=== PATIENT | female | born 1975 | race Caucasian/White ===

== ENCOUNTER → 2017-11-06 | Outpatient (CLI) | payer OTHER ==
[2017-11-06 09:25] LABS: ADD MAN DIFF? NO
[2017-11-06 09:29] LABS: BASO # 0.1 x10^3/uL (0.0-0.2); BASO % 1 % (0-3); EOS # 0.3 x10^3/uL (0.0-0.7); EOS % 2 % (0-3); HEMATOCRIT 42.7 % (36.0-47.0); HEMOGLOBIN 14.1 g/dL (12.0-15.5); LYMPH # 3.9 x10^3/uL (1.0-4.8); LYMPH % 24 % (24-48); MEAN CORPUSCULAR HEMOGLOBIN 31 pg (25-35); MEAN CORPUSCULAR HGB CONC 33 g/dL (31-37); MEAN CORPUSCULAR VOLUME 94 fL (79-100); MONO # 1.5 x10^3/uL (0.0-1.1); MONO % 9 % (0-9); NEUT # 10.9 x10^3uL (1.8-7.7); NEUT % 65 % (31-73); PLATELET COUNT 314 x10^3/uL (140-400); RED BLOOD COUNT 4.54 x10^6/uL (3.50-5.40); RED CELL DISTRIBUTION WIDTH 13.3 % (11.5-14.5); WHITE BLOOD COUNT 16.6 x10^3/uL (4.0-11.0)
[2017-11-06 09:49] LABS: ALBUMIN 3.8 g/dL (3.4-5.0); ALBUMIN/GLOBULIN RATIO 0.8 (1.0-1.7); ALK PHOS 56 U/L (46-116); ALT (SGPT) 34 U/L (14-59); ANION GAP 12 (6-14); AST (SGOT) 25 U/L (15-37); BLOOD UREA NITROGEN 15 mg/dL (7-20); BUN/CREATININE RATIO 19 (6-20); CALCIUM 8.6 mg/dL (8.5-10.1); CARBON DIOXIDE 25 mmol/L (21-32); CHLORIDE 103 mmol/L (98-107); CREATININE 0.8 mg/dL (0.6-1.0); GFR 79.4; GLUCOSE 78 mg/dL (70-99); SODIUM 140 mmol/L (136-145); TOTAL BILIRUBIN 0.2 mg/dL (0.2-1.0); TOTAL PROTEIN 8.3 g/dL (6.4-8.2)
[2017-11-06 09:57] LABS: POTASSIUM 4.6 mmol/L (3.5-5.1)
[2017-11-06 19:11] LABS: MRSA BY PCR Negative (Negative)
== END | disposition home or self-care (01) ==
LOC: SURGPAT 08:23
DX: Z01.812 Encounter for preprocedural laboratory examination (principal); M51.26 Other intervertebral disc displacement, lumbar region; M54.16 Radiculopathy, lumbar region
CPT/HCPCS: 36415; 80053; 85025; 87641

== ENCOUNTER 2017-11-08 07:12 | Day surgery (SDC) | payer OTHER ==
[~2017-11-08 07:12] MED LIST: HYDROmorphone 2 MG/ML VIAL IV; LIDOCAINE 1% PF 2 ML VIAL. ID; MORPHINE SULFATE 2 MG/ML DISP.SYRIN. IV; ONDANSETRON PF 4 MG/2 ML VIAL. IV; PROCHLORPERAZINE 10 MG/2 ML VIAL. IV; fentaNYL PF VIAL 100 MCG/2 ML VIAL IV
[2017-11-08 07:40] LABS: NEG OBC UR NEG; POS OBC UR POS
[2017-11-08 07:41] LABS: ADD MAN DIFF? NO; U PREG PATIENT NEGATIVE (NEG)
[2017-11-08 07:46] LABS: BASO % 1 % (0-3); EOS # 0.4 x10^3/uL (0.0-0.7); EOS % 4 % (0-3); HEMATOCRIT 40.2 % (36.0-47.0); HEMOGLOBIN 13.6 g/dL (12.0-15.5); LYMPH # 3.6 x10^3/uL (1.0-4.8); LYMPH % 36 % (24-48); MEAN CORPUSCULAR HEMOGLOBIN 31 pg (25-35); MEAN CORPUSCULAR HGB CONC 34 g/dL (31-37); MEAN CORPUSCULAR VOLUME 91 fL (79-100); MONO # 0.8 x10^3/uL (0.0-1.1); MONO % 8 % (0-9); NEUT % 51 % (31-73); PLATELET COUNT 291 x10^3/uL (140-400); RED CELL DISTRIBUTION WIDTH 13.1 % (11.5-14.5); WHITE BLOOD COUNT 9.9 x10^3/uL (4.0-11.0)
[2017-11-08] MEDS ORDERED: SCOPOLAMINE 1.5MG PATCH. TD (08:08)
[2017-11-08] MEDS: SCOPOLAMINE 1.5MG PATCH. TD (08:09)
[2017-11-08] MEDS ORDERED: fentaNYL PF VIAL 100 MCG/2 ML VIAL ×2 (08:28→09:40)
[2017-11-08] MEDS ORDERED: SUCCINYLCHOLINE 200 MG/10 ML VIAL. ×2 (08:29)
[2017-11-08] MEDS ORDERED: MIDAZOLAM HCL/PF 2 MG/2 ML VIAL. (08:40)
[2017-11-08] MEDS ORDERED: ROCURONIUM 50 MG/5 ML VIAL. ×2 (08:40)
[2017-11-08] MEDS ORDERED: REMIFENTANIL 2 MG VIAL. IV (09:03)
[2017-11-08] MEDS ORDERED: ePHEDrine PF IN SALINE 50 MG/5 ML DISP.SYRIN IV (09:37)
[2017-11-08] MEDS: GELATIN SPONGE SIZE 100. (09:39)
[2017-11-08] MEDS: BACITRACIN 50,000 UNIT in IV NORMAL SALINE 1000ML BAG 1,000 ML IRR (09:39)
[2017-11-08] MEDS: THROMBIN TOPICAL 20,000 UNIT SPRAY.SYRN KIT TP (09:39)
[2017-11-08] MEDS: BUPIVAC MPF-EPI 0.75%-1:200000 30 ML VIAL. INJ (09:39)
[2017-11-08] MEDS: KETOROLAC 60 MG/2 ML INJ FOR OR. (09:39)
[2017-11-08] MEDS ORDERED: PROPOFOL 50 ML IV ×2 (09:50)
[2017-11-08] MEDS ORDERED: DESFLURANE 61 TO 120 MINUTES IH (10:29)
[2017-11-08] MEDS ORDERED: NEOSTIGMINE METHYLSULFATE 5 MG/5 ML SYRINGE. (10:30)
[2017-11-08] MEDS ORDERED: GLYCOPYRROLATE 1 MG/5 ML VIAL. (10:30)
[2017-11-08] MEDS: IV RINGERS,LACTATED 1000ML 1,000 ML IV (10:51)
[2017-11-08] MEDS: fentaNYL PF VIAL 100 MCG/2 ML VIAL IV ×4 (11:06→11:35)
[2017-11-08] MEDS: oxyCODONE/APAP 5/325 1 TAB TABLET PO (11:57)
[2017-11-08] MEDS ORDERED: ceFAZolin 2GM PREMIX 2 GM/50 ML BAG IV (12:00)
== END 2017-11-08 13:43 | disposition home or self-care (01) ==
LOC: SURG 07:12
DX: M51.16 Intervertebral disc disorders with radiculopathy, lumbar region (principal); K21.9 Gastro-esophageal reflux disease without esophagitis; D64.9 Anemia, unspecified; Z98.890 Other specified postprocedural states; Z87.39 Personal history of other diseases of the musculoskeletal system and connective tissue
CPT/HCPCS: 36415; 76000; 81025; 85025; 88304; 88311; 97162-GP; 97530-GP; G8978-CK-GP; G8979-CK-GP; G8980-CK-GP; J0330; J0690; J1885; J2250; J2704; J2710; J3010; J3490; J7030